=== PATIENT | male | born 1995 | race African-American/Black ===

== ENCOUNTER 2017-08-07 16:42 | Emergency (ER) | payer MEDICAID ==
[~2017-08-07] VITALS: Ht 172.7 cm; Wt 77.1 kg
[2017-08-07 16:47] VITALS: BP_SYST 154
--- NOTE | 2017-08-07 16:50 | NUR ---
Patient to ER bed 4 to gown for evaluation. Side rails up. Report given to Eddie DEL ROSARIO.
--- NOTE | 2017-08-07 16:53 | NUR ---
ER at bedside examining patient.
--- NOTE | 2017-08-07 16:55 | NUR ---
Pt presents to ER c/o severe throat pain 10/10, nausea, vomiting, and mild abd pain x 2 days. Pt reports taking Nyquil last night with little to no relief. Pt denies chest pain, diarrhea. Pt denies significant medical history. Pt reports recreational drug use of marijuana. Pt is AOX4. No acute distress noted.
[2017-08-07] MEDS ORDERED: NACL 0.9% 1,000 ML IV ONE (16:57)
[2017-08-07] MEDS ORDERED: MORPHINE 4 MG/ML INJ. SYRINGE IVP ONE (17:00)
[2017-08-07] MEDS ORDERED: PENICILLIN G BENZATHINE 1.2 MMU/2 ML SYR IM ONE (17:00)
--- NOTE | 2017-08-07 17:06 | NUR ---
Laboratory at bedside for blood draw.
[2017-08-07 17:25] LABS: HEMATOCRIT 50.9 % (36-54); MEAN CORPUSCULAR HEMOGLOBIN 32 pg (27-31); MEAN CORPUSCULAR HGB CONC 33 % (32-36); MEAN CORPUSCULAR VOLUME 94 fL (79.0-98.0); PLATELET COUNT (AUTO) 216 K/uL (130-430); RED CELL DISTRIBUTION WIDTH 12.3 % (9.0-15.0); WHITE BLOOD COUNT (AUTO) 22.4 K/uL (4.8-10.8)
[2017-08-07 17:28] LABS: CALCIUM 10.1 mg/dL (8.4-11.0); CREATININE 1.19 mg/dL (0.55-1.30); POTASSIUM 4.4 mmol/L (3.5-5.1)
[2017-08-07 17:33] LABS: ALBUMIN 4.7 g/dL (3.4-4.8)
--- NOTE | 2017-08-07 17:45 | NUR ---
# 20 gauge angiocath placed to LAC. Use of asceptic technique. Opsite placed over site. Blood return noted. Flushed with 10 cc of normal saline. No evidence of infiltration noted. Patient tolerated well.
[2017-08-07] MEDS ORDERED: ONDANSETRON HCL 4 MG/2 ML VIAL ONE (17:58)
--- NOTE | 2017-08-07 18:00 | NUR ---
IVF administered to pt. Pt tolerating well. Will continue to monitor.
--- NOTE | 2017-08-07 18:02 | NUR ---
Pt reports increased nausea during administration of IVF. Dr. Zamora informed.
--- NOTE | 2017-08-07 18:10 | NUR ---
Pt medicated for nausea and given Morphine for pain in throat of 06/07. Pt also given Penicillin shot IM on gluteus mitzi. Pt tolerated well. Girlfriend at bedside.
[2017-08-07 18:17] LABS: BAND % (MANUAL) 34 % (0-6); BASOPHILS % (MANUAL) 0 % (0-2); EOSINOPHILS % (MANUAL) 0 % (0-7); LYMPHOCYTES % (MANUAL) 2 % (20-46); MONOCYTES % (MANUAL) 3 % (0-11)
[2017-08-07 18:18] LABS: METAMYELOCYTES % 1 % (0-0)
--- NOTE | 2017-08-07 18:30 | NUR ---
Urine collected and sent to lab.
--- NOTE | 2017-08-07 18:45 | NUR ---
ER at bedside updating pt on diagnostic results and plan of action.
[2017-08-07 19:00] VITALS: BP_SYST 148
--- NOTE | 2017-08-07 19:00 | NUR ---
Patient given written and verbal discharge instructions and verbalizes understanding. ER MD discussed with patient the results and treatment provided. Patient in stable condition. ID arm band removed. IV catheter removed intact and dressing applied, no active bleeding. Rx of Lidocaine Hydrochloride, Tylenol given. Patient educated on pain management and to follow up with PMD. Pain Scale 3/10. Opportunity for questions provided and answered.
[2017-08-07 19:03] LABS: BILIRUBIN,URINE 1+ (NEGATIVE); BLOOD, URINE NEGATIVE (NEGATIVE); CLARITY/URINE CLEAR (CLEAR); COLOR,URINE YELLOW (YELLOW); GLUCOSE,URINE NEGATIVE (NEGATIVE); KETONES,URINE 2+ (NEGATIVE); LEUKOCYTE ESTERASE ,URINE NEGATIVE (NEGATIVE); NITRITE, URINE NEGATIVE (NEGATIVE); PROTEIN URINE NEGATIVE (NEGATIVE); UROBILINOGEN,URINE 0.2 (0.2-1.0)
[2017-08-07 19:32] LABS: BARBITURATE, URINE NEGATIVE (NEG <=200); BENZODIAZEPINE, URINE POSITIVE (NEG <=150); CANNABINOID, URINE POSITIVE (NEG <=50); COCAINE, URINE NEGATIVE (NEG <=150); METHAMPHETAMINES SCREEN,URINE POSITIVE (NEG <=500); OPIATE, URINE POSITIVE (NEG <=100); PHENCYCLIDINE SCREEN,URINE NEGATIVE (NEG <=25); UR TRICYCLIC ANTIDEPRESSANTS NEGATIVE (NEG <=300); URINE AMPHETAMINE NEGATIVE (NEG <=500); URINE METHADONE NEGATIVE (NEG <=200); URINE OXYCODONE SCREEN NEGATIVE (NEG <=100); URINE PROPOXYPHENE SCREEN NEGATIVE (NEG <=300)
== END 2017-08-07 19:00 | disposition home or self-care (01) ==
LOC: SED 16:42
DX: J02.0 Streptococcal pharyngitis (principal)
CPT/HCPCS: 36415; 80053; 80307; 81003; 85007; 85027; 86403; 96360; 96372; 96374; 99284; J0561; J2270; J2405; J7030

== ENCOUNTER 2018-10-13 08:00 | Emergency (ER) | payer MEDICAID ==
[~2018-10-13] VITALS: Ht 172.7 cm; Wt 74.8 kg
[2018-10-13 08:11] VITALS: BP_SYST 122
[2018-10-13] MEDS ORDERED: ONDANSETRON HCL 4 MG/2 ML VIAL IM ONE (08:45)
[2018-10-13] MEDS ORDERED: DIPHENOXYLATE HCL/ATROP SULF 2.5 MG TAB PO ONE (08:45)
[2018-10-13] MEDS ORDERED: ONDANSETRON HCL 4 MG/2 ML VIAL ONE (09:16)
[2018-10-13] MEDS ORDERED: DIPHENOXYLATE HCL/ATROP SULF 2.5 MG TAB ONE (09:16)
[2018-10-13] MEDS ORDERED: MAG HYDROX/AL HYDROX/SIMETH 30 ML, BELLADONNA ALKALOIDS/PHENOBARB 10 ML, LIDOCAINE VISC... PO ONE ×3 (09:45)
[2018-10-13] MEDS ORDERED: LIDOCAINE VISCOUS 2%, 15 ML UDC ONE (10:07)
[2018-10-13] MEDS ORDERED: BELLADONNA ALKALOIDS/PHENOBARB 5 ML UDC ONE (10:07)
[2018-10-13] MEDS ORDERED: MAG-AL HYDROX/SIMETH 30 ML UDC ONE (10:07)
[2018-10-13 10:38] VITALS: BP_SYST 120
== END 2018-10-13 10:38 | disposition home or self-care (01) ==
LOC: SED 08:00
DX: K52.9 Noninfective gastroenteritis and colitis, unspecified (principal); R03.0 Elevated blood-pressure reading, without diagnosis of hypertension
CPT/HCPCS: 96372; 99283; J2001; J2405